=== PATIENT | male | born 1990 | race Hispanic/Latino ===

== ENCOUNTER 2017-02-02 17:52 | Emergency (ER) | payer SELFPAY ==
[2017-02-02 20:10] LABS: #Basophils 0.1 thou/uL (0.0-0.2); #Eosinphils 0.1 thou/uL (0.0-0.7); #Lymphocytes 2.2 thou/uL (1.20-3.40); #Monocytes 0.5 thou/uL (0.11-0.59); #Neutrophils 8.6 thou/uL (1.40-6.50); %Basophils 0.7 % (0.0-1.0); %Eosinophils 0.9 % (0.0-10.0); %Lymphocytes 19.5 % (21.0-51.0); %Monocytes 4.5 % (0.0-10.0); Hematocrit 44.8 % (42.0-52.0); Red Blood Cell (RBC) Count 4.91 mill/uL (4.70-6.10); White Blood Cell (WBC) Count 11.5 thou/uL (4.8-10.8)
[2017-02-02 20:29] LABS: ALT (SGPT) 13 U/L (8-55); AST (SGOT) 14 U/L (5-34); Alkaline Phosphatase 63 U/L (40-150); Anion Gap 16 mmol/L (10-20); BUN (Urea Nitrogen) 15 mg/dL (8.9-20.6); Bilirubin, Total 0.5 mg/dL (0.2-1.2); Calc. Creatinine Clearance 0 mL/min (70-130); Calcium 9.8 mg/dL (7.8-10.44); Carbon Dioxide 24 mmol/L (22-29); Chloride 103 mmol/L (98-107); Estimated GFR-MDRD Greater than 90; Globulin 3.8 g/dL (2.4-3.5); Protein, Total 8.8 g/dL (6.0-8.3)
[2017-02-02] MEDS ORDERED: Potassium Chloride 20 MEQ TAB ONE (21:03)
== END 2017-02-02 21:15 | disposition home or self-care (01) ==
LOC: ERS 17:52
DX: F41.9 Anxiety disorder, unspecified (principal)
CPT/HCPCS: 80053; 84443; 85025; 93005

== ENCOUNTER 2019-03-04 21:08 | Emergency (ER) | payer SELFPAY ==
--- NOTE | 2019-03-04 22:49 | RAD ---
Exam:Right foot 3 views HISTORY: Laceration. Pain. Trauma. COMPARISON: None FINDINGS: Dorsal soft tissue laceration. No radiopaque foreign body Preserved joint spaces. Lisfranc alignment is maintained. No fracture. IMPRESSION: Dorsal soft tissue swelling. No radiopaque foreign body.
[2019-03-04] MEDS ORDERED: Bacitracin 1 PK ONE (23:20)
[2019-03-04] MEDS ORDERED: Adacel (T-DAP) 0.5 ML SYRINGE ONE (23:22)
== END 2019-03-05 | disposition home or self-care (01) ==
LOC: ERS 21:08
DX: S91.311A Laceration without foreign body, right foot, initial encounter (principal); Z23 Encounter for immunization; W25.XXXA Contact with sharp glass, initial encounter; Y92.009 Unspecified place in unspecified non-institutional (private) residence as the place of occurrence of the external cause; Y93.39 Activity, other involving climbing, rappelling and jumping off
CPT/HCPCS: 12002; 90471; 90715

== ENCOUNTER 2019-03-14 07:56 | Emergency (ER) | payer SELFPAY | END 2019-03-14 08:37 | disposition home or self-care (01) | LOC: ERS 07:56 | DX: L53.9 Erythematous condition, unspecified (principal); F41.9 Anxiety disorder, unspecified | CPT/HCPCS: 99282 ==

== ENCOUNTER 2022-05-14 20:15 | Emergency (ER) | payer SELFPAY | END 2022-05-14 21:35 | disposition home or self-care (01) | LOC: ERS 20:15 | DX: F41.9 Anxiety disorder, unspecified (principal); R51.9 Headache, unspecified; I10 Essential (primary) hypertension | CPT/HCPCS: 99283 ==

== ENCOUNTER 2024-12-27 07:43 | Emergency (ER) | payer SELFPAY ==
[2024-12-27] MEDS ORDERED: Acetaminophen 500 MG TAB ONE (08:34)
[2024-12-27 08:38] LABS: #Basophils 0.06 10x3/uL (0.0-0.2); #Eosinophils 0.05 10x3/uL (0.0-0.7); #Monocytes 0.57 10x3/uL (0.11-0.59); #Neutrophils 6.04 10x3/uL (1.40-6.50); %Basophils 0.7 % (0.0-1.0); %Eosinophils 0.6 % (0.0-10.0); %Lymphocytes 21.5 % (21.0-51.0); %Monocytes 6.7 % (0.0-10.0); %Neutrophils 70.4 % (42.0-75.0); Hematocrit 43.3 % (42.0-52.0); Hemoglobin 15.3 g/dL (14.0-18.0); Mean Corpuscular Hemoglobin 30.5 pg (27.0-31.0); Mean Corpuscular Volume 86.3 fL (78.0-98.0); Platelet Count 308 10x3/uL (130-400); Red Blood Cell (RBC) Count 5.02 mill/uL (4.70-6.10); White Blood Cell (WBC) Count 8.57 10x3/uL (4.8-10.8)
[2024-12-27 08:50] LABS: ALT (SGPT) 22 U/L (Less than 45); AST (SGOT) 53 U/L (11-34); Albumin 4.7 g/dL (3.1-4.5); Alkaline Phosphatase 48 U/L (40-110); Anion Gap 17 mmol/L (10-20); BUN (Urea Nitrogen) 15 mg/dL (8.9-20.6); Bilirubin, Total 0.9 mg/dL (0.3-1.2); Calc. Creatinine Clearance 0 mL/min (70-130); Calcium 9.4 mg/dL (7.8-10.44); Carbon Dioxide 23 mmol/L (22-29); Chloride 101 mmol/L (98-107); Globulin 3.7 g/dL (2.4-3.5); Glucose 89 mg/dL (70-105); Lipase 52 U/L (8-78); Potassium 3.8 mmol/L (3.5-5.1); Sodium 137 mmol/L (136-145)
== END 2024-12-27 10:40 | disposition home or self-care (01) ==
LOC: ERS 07:43
DX: M54.6 Pain in thoracic spine (principal); I10 Essential (primary) hypertension
CPT/HCPCS: 71046; 80053; 83690; 84484; 85025; 93005; 96372